=== PATIENT | male | born 1965 | race Caucasian/White ===

== ENCOUNTER 2017-06-30 03:37 | Emergency (ER) | payer SELFPAY ==
[2017-06-30] MEDS: DEXAMETHASONE SOD PHOSPHATE 10MG/ML VIAL IVP ONE (03:45)
--- NOTE | 2017-06-30 03:45 | Emergency Department Record ---
History of Present Illness - General Chief Complaint: Shortness of breath Stated Complaint: JUVENAL Time Seen by Provider: 06/30/17 03:50 Source: Patient, Family Mode of Arrival: Ambulatory Limitations: No limitations - History of Present Illness Initial Comments: 51 yo male presents with 5 days of not feeling well. He reports he has had cold symptoms with cough and sore throat. Tonight he has had increase sore throat with a feeling of shortness or breath and trouble with swallowing due to pain. He has coughed up some phlegm. No vomiting or diarrhea. No chest or abdominal pain. He has not seen a doctor in about 25 years. The throat has been painful for about one day since Thursday morning. He smokes a pack per day of cigarettes. MD Complaint: Cough, Shortness of breath (throat pain) -: Days(s) (5) Quality: Aching, Sharp Consistency: Constant Improves With: Nothing Worsens With: Coughing, Eating Context: Recent URI Associated Symptoms: Cough Treatments Prior to Arrival: None - Related Data Home Medications Medication Instructions Recorded Confirmed Last Taken No Home Med [NO HOME MEDS] 06/30/17 06/30/17 Unknown Allergies Allergy/AdvReac Type Severity Reaction Status Date / Time No Known Drug Allergies Allergy Verified 06/30/17 03:39 Physical Exam - General General Appearance: Alert, Oriented x3, Cooperative, No acute distress Limitations: No limitations - Head Head exam: Atraumatic, Normocephalic, Normal inspection - Eye Eye exam: Normal appearance. negative: Conjunctival injection, Periorbital swelling - ENT ENT exam: Mucous membranes moist. negative: Normal exam, Mucous membranes dry, Normal orophraynx (mild erythema, mild uvular swelling) Nasal Exam: Normal inspection Mouth exam: Normal external inspection, Muffled voice (mild hoarse voice, easily understandable), Tongue normal. negative: Drooling, Tongue elevation Teeth exam: Normal inspection Throat exam: Tonsillar erythema, Tonsillomegaly, Other (patent but diffusely erythematous with swelling). negative: Normal inspection, Tonsillar exudate, R peritonsillar mass, L peritonsillar mass - Neck Neck exam: Normal inspection. negative: Lymphadenopathy, Meningismus, Tenderness - Respiratory Respiratory exam: Decreased breath sounds. negative: Accessory muscle use, Chest wall tenderness, Prolonged expiratory, Respiratory distress, Rhonchi, Stridor, Wheezes - Cardiovascular Cardiovascular Exam: Normal rhythm, Normal heart sounds, Tachycardia (mild) Peripheral Pulses: 2+: Radial (R), Radial (L) - GI/Abdominal GI/Abdominal exam: Soft. negative: Tenderness - Rectal Rectal exam: Deferred - exam: Deferred - Extremities Extremities exam: Normal inspection, Full ROM, Normal capillary refill. negative: Tenderness - Back Back exam: Reports: Normal inspection - Neurological Neurological exam: Alert, Oriented X3 - Psychiatric Psychiatric exam: Normal affect, Normal mood - Skin Skin exam: Dry, Intact, Normal color, Warm Course - Reevaluation(s) Reevaluation #1: The patient was seen and examined He has cough and sore throat with pain with talking or swallowing gradually worsening over 5 days. He is in no distress but does have some altering of the voice, non labored and no strider. His voice is easy to understand at this time but altered and hoarse His upper airway is widely patent with diffuse erythema. He coughs and handles all secretions but with pain He is relaxed in bed without strider or tripodding, no retractions 06/30/17 03:50 06/30/17 03:54 06/30/17 03:56 CBC demonstrates WBC count of 20.9 06/30/17 04:01 06/30/17 04:11 The CMP was reviewed No acute changes The CRP is 9.4 06/30/17 04:15 Strep was negative The patient was given a cool mist treatment He is stable for CT at this time. 06/30/17 04:27 I accompanied the patient to CT, he tolerated the exam very well. 06/30/17 05:01 Recheck the patient is doing well Awaiting CT report from [facility]. CXR prelim read is no acute process. 06/30/17 05:[address] scan from [facility] demonstrated a 6mm focal hypodense area in the left tonsillar pillar that may represent early abscess or phlegmon within the tonsillar pillar, the left tonsillar pillar is thickened. Right thickened tonsillar pillar, thickening of the posterior aspect of the nasopharynx may represent aedenoid tissue. 06/30/17 05:21 06/30/17 05:[address] Danielson of , He requests ED to ED first to evaluate prior to admission. I SW Dr Anthony of the ED. She accepts the patient for transfer ED to ED 06/30/17 05:35 Medical Decision Making - Lab Data Result diagrams: 06/30/17 03:45 06/30/17 03:45 Disposition Disposition: Transfer Clinical Impression: Tonsillitis, Tonsillar abscess Disposition: Acute Care Hospital Transfer Transfer To: [facility] ED Reason For Transfer: tonsillar abscess vs phlegmon Accepting Physician: Dr. Anthony Time Discussed w/Accepting Physician: :17 Condition: (2) Stable Forms: Patient Portal Access Time of Disposition: :17 Quality - Quality Measures Quality Measures: N/A - Blood Pressure Screening Does Patient Have Any of the Following: No Blood Pressure Classification: Pre-Hypertensive BP Reading Systolic Measurement: 125 Diastolic Measurement: 88 Screening for High Blood Pressure: < Pre-Hypertensive BP, F/U Documented > [ [id number]] Pre-Hypertensive Follow-up Interventions: Referral to alternative/primary care provider.
[2017-06-30 03:53] LABS: HEMATOCRIT 43.1 % (42.0-52.0); HEMOGLOBIN 14.5 gm/dl (14.0-18.0); MEAN CELL VOLUME 96.2 fl (81-97); MEAN CORPUSCULAR HEMOGLOBIN 32.4 pg (27-33); MEAN CORPUSCULAR HGB CONC 33.6 g/dl (32-36); MEAN PLATELET VOLUME 10.1 fl (7.4-10.4); PLATELET COUNT 360 K/uL (130-400); RED BLOOD COUNT 4.48 M/uL (4.40-5.70); RED CELL DISTRIBUTION WIDTH 13.1 % (11.5-14.5)
[2017-06-30 03:55] LABS: WHITE BLOOD COUNT W/O DIFF 20.9 K/uL (4.2-12.2)
[2017-06-30 04:02] LABS: INR 0.94; PROTHROMBIN TIME (PATIENT) 10.1 SECONDS (9.5-12.1)
[2017-06-30] MEDS: CEFTRIAXONE SODIUM 2 GM in 0.9 % SODIUM CHLORIDE 100ML 100 ML IVPB ONE (04:03)
[2017-06-30] MEDS: 0.9 % SODIUM CHLORIDE 1,000 ML BAG IV ONE (04:03)
[2017-06-30 04:09] LABS: ALB/GLOB RATIO 1.1 (1.1-1.8); ALKALINE PHOSPHATASE 142 U/L (40-129); ALT/SGPT 14 U/L (<41); AST/SGOT 16 U/L (10.0-50.0); BLOOD UREA NITROGEN 12 mg/dL (6-20); C-REACTIVE PROTEIN 9.3 mg/L (<5.0); CREATININE 0.9 mg/dL (0.7-1.2); EST GLOMERULAR FILTRATION RATE > 60 mL/min; GLUCOSE,RANDOM 124 mg/dL (74-109); TOTAL PROTEIN 7.5 g/dL (6.6-8.7)
[2017-06-30] MEDS: RACEPINEPHRINE 2.25% (0.5ML) NEB INH ONE (04:44)
[2017-06-30] MEDS: KETOROLAC 30 MG/ML VIAL IVP ONE (05:26)
[2017-06-30] MEDS: ACETAMINOPHEN 1,000 MG/100 ML BTL IVPB ONE (05:26)
--- NOTE | 2017-07-02 09:40 | RADIOLOGY REPORT ---
EXAM: CHEST, TWO VIEWS HISTORY: SHORTNESS OF BREATH, SORE THROAT, COUGH. TECHNIQUE: PA and lateral views of the chest were obtained. Comparison: None. FINDINGS: The heart size is within normal limits. Some mild linear fibrosis or discoid atelectasis in the right middle lobe. No acute alveolar infiltrate is seen. No pleural effusion or pneumothorax evident. On the lateral view there is a suggestion of a 9 mm nodule overlying the region of the linear fibrosis or discoid atelectasis. This is difficult to visualize on the frontal view, however. Recommend comparison with old films. IMPRESSION: 1. LINEAR FIBROSIS OR DISCOID ATELECTASIS RIGHT MIDDLE LOBE. 2. QUESTIONABLE 9 MM NODULE IN THE RIGHT MIDDLE LOBE WELL. RECOMMEND COMPARISON WITH OLD FILMS. 3. THE HEART SIZE IS NORMAL. JOB NUMBER: [id number] MTDD
--- NOTE | 2017-07-02 09:55 | CT SCAN REPORT ---
EXAM: SOFT TISSUE CT OF THE NECK HISTORY: SORE THROAT, HOARSE VOICE, PAIN WITH SWALLOWING FOR THREE DAYS. TECHNIQUE: Axial CT scan of the neck was performed following the intravenous administration of 100 ml of Omnipaque 300 as the IV contrast. A preliminary report was provided by [facility] at the time of the scan. Comparison: None. FINDINGS: No parotid, submandibular, or thyroid gland mass identified. The visualized paranasal sinuses demonstrate mild to moderate membrane thickening in the ethmoids bilaterally, sphenoids, inferiorly in the maxillary sinuses and inferiorly in the visualized left frontal sinus. No actual air fluid levels seen in the paranasal sinuses. The mastoids and middle ear cavities appear clear. The epiglottis appears of normal sinus. No distention of the hypopharynx or narrowing of the subglottic airway identified. There are some mildly prominent cervical nodes which are probably just reactive with no mindi adenopathy identified. There is asymmetry in the region of the tonsils with greater fullness on the left and with a small low attenuation focus in this region approximately 5.2 mm in AP diameter and 6.7 cm in craniocaudal dimension. Clinical correlation as to tonsillitis with possible developing small abscess on the left in particular suggested. There is also mildly prominent adenoid tissue present. No acute infiltrate seen in the visualized lung apices and no apical pneumothorax evident. Mild degenerative change at the odontoid-anterior arch of C1 articulation. IMPRESSION: 1. SOME FULLNESS IN THE REGION OF THE TONSILS BILATERALLY GREATER ON THE LEFT WITH A SMALL LOW ATTENUATION FOCUS IN THIS LOCATION. THE POSSIBILITY OF TONSILLITIS WITH DEVELOPING ABSCESS ON THE LEFT IS RAISED AND CLINICAL CORRELATION IS SUGGESTED. 2. MILDLY PROMINENT ADENOID TISSUE. 3. THE EPIGLOTTIS IS OF NORMAL SIZE AND NO PREVERTEBRAL SOFT TISSUE SWELLING EVIDENT. 4. MILD TO MODERATE MEMBRANE THICKENING INVOLVING SEVERAL OF THE PARANASAL SINUSES DETAILED ABOVE. JOB NUMBER: [id number] [facility]
== END 2017-06-30 05:51 | disposition short-term general hospital (02) ==
LOC: ER 03:37
DX: J36 Peritonsillar abscess (principal); R06.02 Shortness of breath
CPT/HCPCS: 99285 ×2; 96374; 96375; 85730; 85610; 86140; 80053; 87880; 85027; 71020; 70491; 94640; Q9967; J1885; J1100; J7030